=== PATIENT | male | born 1940 | race Caucasian/White ===

== ENCOUNTER 2017-11-05 08:41 | Emergency (ER) | payer MEDICARE, OTHER ==
[2017-11-05] MEDS ORDERED: hydrALAZINE 25 MG Tab PO SCH (09:00)
--- NOTE | 2017-11-05 10:12 | EDM.PDOC ---
ED HPI GENERAL MEDICAL PROBLEM - General Chief Complaint: General Stated Complaint: HIT BY GATE AND FELL AND HIT R HEAD/SHOULDER Time Seen by Provider: 11/05/17 08:47 - History of Present Illness INITIAL COMMENTS - FREE TEXT/NARRATIVE: Toby is a 77 year old male who presents to the ED with c/o a head injury. He reports he was out to oil rag washer a cow. He reports the cow hit the gate and the gate swung and knocked him over. He reports he fell forward on the cement on the right side. His friend reports he had his eyes open but was unresponsive for around 2-3 minutes, so he called EMS. He reports he then came to and was oriented. He did not want to come to the ED but his friend insisted. He c/o pain to his right shoulder and a slight headache. He is oriented x4. He does have a hematoma to his right anglican and a reddened hematoma to the top side of his right head. He denies any dizziness, chest pain, shortness of breath, N/V/ D. He reports a PMH of type II DM, but he is otherwise healthy. GCS 15. Onset: Today, Sudden Onset Date: 11/05/17 Onset Time: 08:00 Duration: Resolved Prior to Arrival Location: Reports: Head Quality: Reports: Ache Severity: Moderate Associated Symptoms: Reports: Headaches. Denies: Confusion, Chest Pain, Cough, cough w sputum, Diaphoresis, Fever/Chills, Loss of Appetite, Malaise, Nausea/ Vomiting, Rash, Seizure, Shortness of Breath, Syncope, Weakness Right Head Pain Score (Numeric/FACES): 5 - Related Data Allergies Allergy/AdvReac Type Severity Reaction Status Date / Time No Known Allergies Allergy Verified 11/05/17 08:45 Home Meds: Home Meds Calcium Carbonate [Antacid] 1 tab PO DAILY 11/05/17 [History] Cholecalciferol (Vitamin D3) [Vitamin D] 5,000 units PO DAILY 11/05/17 [History] metFORMIN [Glucophage XR] 500 mg PO BID 11/05/17 [History] Past Medical History Endocrine/Metabolic History: Reports: Diabetes, Type II Social & Family History - Family History Family Medical History: Noncontributory - Tobacco Use Smoking Status *Q: Never Smoker - Recreational Drug Use Recreational Drug Use: No ED ROS GENERAL - Review of Systems Review Of Systems: ROS reveals no pertinent complaints other than HPI. ED EXAM, GENERAL - Physical Exam Exam: See Below Exam Limited By: No Limitations General Appearance: Alert, WD/WN, No Apparent Distress Eye Exam: Bilateral Eye: EOMI, Normal Fundi, Normal Inspection, PERRL Ears: Normal External Exam, Normal Canal, Hearing Grossly Normal, Normal TMs Nose: Normal Inspection, Normal Mucosa, No Blood Throat/Mouth: Normal Inspection, Normal Lips, Normal Teeth, Normal Gums, Normal Oropharynx, Normal Voice, No Airway Compromise Head: Normocephalic, Other (hematoma to right anterior scalp and right anglican area) Neck: Normal Inspection, Supple, Non-Tender, Full Range of Motion Respiratory/Chest: No Respiratory Distress, Lungs Clear, Normal Breath Sounds, No Accessory Muscle Use, Chest Non-Tender Cardiovascular: Normal Peripheral Pulses, Regular Rate, Rhythm, No Edema, No Gallop, No JVD, No Murmur, No Rub GI/Abdominal: Normal Bowel Sounds, Soft, Non-Tender, No Organomegaly, No Distention, No Abnormal Bruit, No Mass Back Exam: Normal Inspection, Full Range of Motion, NT Extremities: Normal Inspection, Normal Range of Motion, Non-Tender, Normal Capillary Refill, No Pedal Edema Neurological: Alert, Oriented, CN II-XII Intact, Normal Cognition, Normal Gait, Normal Reflexes, No Motor/Sensory Deficits Psychiatric: Normal Affect, Normal Mood Skin Exam: Warm, Dry, Intact, Normal Color, No Rash Lymphatic: No Adenopathy Course - Vital Signs Last Recorded V/S: Last Vital Signs Temp 97.7 F 11/05/17 08:42 Pulse 70 11/05/17 08:53 Resp 18 11/05/17 08:42 BP 166/81 H 11/05/17 11:19 Pulse Ox 97 11/05/17 08:42 - Orders/Labs/Meds Orders: Active Orders 24 hr Category Date Time Status Head wo Cont [CT] Stat Exams 11/05/17 08:52 Taken Head wo Cont [CT] Timed Exams 11/05/17 15:00 Taken Shoulder Comp Rt [CR] Stat Exams 11/05/17 08:52 Taken Saline Lock Insert [OM.PC] Routine Oth 11/05/17 10:26 Ordered Meds: Medications Discontinued Medications Generic Name Dose Route Start Last Admin Trade Name Freq PRN Reason Stop Dose Admin Acetaminophen 1,000 mg 11/05/17 11:04 11/05/17 11:14 Tylenol Extra Strength PO 1,000 mg Q6H PRN Administration Pain Hydralazine HCl 25 mg 11/05/17 09:00 11/05/17 09:04 Apresoline PO 25 mg STAT CATHIE Administration Ondansetron HCl 4 mg 11/05/17 10:26 11/05/17 10:42 Zofran IVPUSH 4 mg Q6H PRN Administration Nausea Sodium Chloride 10 ml 11/05/17 10:26 Saline Flush FLUSH ASDIRECTED PRN Keep Vein Open - Radiology Interpretation Free Text/Narrative:: Thin right subdural hematoma. 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 No evidence of acute fracture. Head CT shows thin right subdural hematoma. Consulted with [facility] Neurosurgeon Dr. Stinson who recommends a repeat head CT in 6 hours to ensure subdural hematoma is stable. Also recommends a repeat head CT in one month to ensure resolution of hematoma. If no resolution, have him follow up with neurosurgery. Will keep patient in extended ED until repeat head CT. 11/05/17 16:[address] shows stable subdural hematoma. BP much improved. Patient feeling well. He will be discharged home. Departure - Departure Time of Disposition: 15:49 Disposition: Home, Self-Care 01 Condition: Good Clinical Impression: Subdural hematoma - Discharge Information Instructions: Head Injury, Adult, Subdural Hematoma Referrals: Brian Feng MD [ED Physician] - Forms: ED Department Discharge Additional Instructions: Follow up with Dr. Feng this week for recheck of blood pressure Repeat head CT shows that subdural hematoma is stable Follow up in 1 month for repeat head CT to ensure resolution of subdural hematoma Shoulder xray shows no acute fracture or dislocation Tylenol or ibuprofen as needed for discomfort Apply ice to areas of discomfort Return to ED for any emergent needs, otherwise follow up with PCP - My Orders Last 24 Hours: My Active Orders 11/05/17 08:52 Head wo Cont [CT] Stat Shoulder Comp Rt [CR] Stat 11/05/17 10:26 Saline Lock Insert [OM.PC] Routine 11/05/17 15:00 Head wo Cont [CT] Timed - Assessment/Plan Last 24 Hours: My Active Orders 11/05/17 08:52 Head wo Cont [CT] Stat Shoulder Comp Rt [CR] Stat 11/05/17 10:26 Saline Lock Insert [OM.PC] Routine 11/05/17 15:00 Head wo Cont [CT] Timed
[2017-11-05] MEDS ORDERED: Ondansetron 4 MG/2 ML SDV IVPUSH PRN (10:26)
[2017-11-05] MEDS ORDERED: Sodium Chloride 0.9% 10 ML Syringe FLUSH PRN (10:26)
[2017-11-05] MEDS ORDERED: Acetaminophen 500 MG Tab PO PRN (11:04)
== END 2017-11-05 16:10 | disposition home or self-care (01) ==
LOC: CC.ED 08:41
DX: S06.5X9A Traumatic subdural hemorrhage with loss of consciousness of unspecified duration, initial encounter (principal); E11.9 Type 2 diabetes mellitus without complications; Z79.899 Other long term (current) drug therapy; Z79.84 Long term (current) use of oral hypoglycemic drugs; W18.09XA Striking against other object with subsequent fall, initial encounter; Y99.0 Civilian activity done for income or pay
CPT/HCPCS: 70450; 73030-RT; 96374; 99284; A9270-GY; J2405